=== PATIENT | female | born 1935 | race Caucasian/White ===

== ENCOUNTER → 2016-09-22 | Outpatient (CLI) | payer MEDICARE, MEDICAID ==
[~2016-09-22] MED LIST: ACDPT PO; ACET-461 PO; AMLO5TAB2 PO; ASP81CT PO; ASP81TEC PO; CATHETER FLUSH 10 ML SYR IV PRN; CETI10TA20 PO; CLINDAMYCIN 1% TP; CODE-54 PO; DABI150C2 PO; DCS100C PO; DULO60CA6 PO; FERR-57 PO; FLUT16SP22 NS; FURO20TA PO; MAGN250T7 PO; MECL25TA56 PO; METO25TA2 PO; OMEG1CAP51 PO; OMEP20CA12 PO; POTA10TA36 PO; REGADENOSON 0.4 MG/5 ML SYR (LEXISCAN) IV ONE; RNT150T PO; TRAV5DRO OU
--- OUTSIDE RECORDS SUMMARY | 2016-09-22 10:34 | XMS REPORT | Continuity of Care Document ---
Author Author [facility] Organization [facility] Address Unknown Phone Unavailable Care Team Providers Care [place] [employer] Inspector Name Role Phone VIJAYA GUILLAUME DO PCP Insurance Providers Payer Name Policy Number Subscriber Name Relationship [employer] [id number] Irena Thomson 18 Self / Same As Patient [facility] [id number] Irena Thomson 18 Self / Same As Patient Advance Directives Directive Response Recorded Date/Time Advance Directives Yes 03/27/14 8:52am Health Care Power of [place] Yes 03/27/14 8:52am Organ Donor Yes 03/27/14 8:52am Resuscitation Status Full Code 03/27/14 8:52am Problems No known problems or medical conditions. Medications Medication Dose Route Sig Days/Qty Instructions Order Date Discontinued Date Status Duloxetine HCl 60 Mg PO DAILY 03/27/14 03/27/14 Discontinued Acetaminophen/Codeine 1 Tab PO EVERY 6 HOURS PRN PAIN 03/27/14 Active Travoprost 1 Drop OU BEDTIME 03/27/14 Active Dabigatran Etexilate Mesylate 150 Mg PO 0800, 1730 03/27/14 Active Amlodipine Besylate (Norvasc 5 Mg) 5 Mg PO DAILY 03/27/14 Active Omeprazole 20 Mg PO TWICE A DAY 03/27/14 Active Potassium Chloride 10 Meq PO DAILY 03/27/14 Active Ferrous Sulfate 325 Mg PO THREE TIMES A DAY 03/27/14 Active Furosemide 20 Mg PO DAILY 03/27/14 Active Ranitidine HCl 150 Mg PO 0800, 1730 03/27/14 Active Magnesium Oxide 250 Mg PO 0800, 173 03/27/14 Active [place]-3 Fatty Acids/Fish Oil 1,000 Mg PO DAILY 03/27/14 Active Metoprolol Tartrate (Lopressor) 25 Mg PO 0800, 1730 03/27/14 Active Cetirizine HCl 10 Mg PO DAILY @ 1200 03/27/14 Active Docusate Sodium 100 Mg PO TWICE A DAY 03/27/14 Active Meclizine HCl 25 Mg PO FOUR TIMES DAILY PRN DIZZINESS 03/27/14 Active Fluticasone Propionate 1 [place] NS DAILY 03/27/14 03/27/14 Discontinued Aspirin 81 Mg PO DAILY @ 1730 03/27/14 03/27/14 Discontinued Aspirin 81 Mg PO DAILY 03/27/14 Active [Clindamycin 1% Swabs] TP TWICE A DAY PRN BUTTOX SORE UES FOR 7 DAYS NEEDED FOR BUTTOX SORES 03/27/14 Active Acetaminophen 500 Mg PO TWICE A DAY PRN PAIN 03/27/14 Active Acetaminophen/Diphenhydramine 1 Tab PO BEDTIME 03/27/14 Active Social History Social History Problem Response Recorded Date/Time Smoking Status Never a Smoker 03/27/2014 8:52am Query Response Start Date Stop Date Smoking Status Never a Smoker Hospital Discharge Instructions No hospital discharge instructions. Plan of Care No plan of care. Functional Status Query Response Date Recorded Patient Orientation Person Place Time Situation March 27, 2014 9:19pm Allergies, Adverse Reactions, Alerts Allergen Type Severity Reaction Status Last Updated hydrocodone ([id number]) Allergy Severe ANAPHYLAXIS Active 03/27/14 propoxyphene ([id number]) Allergy Severe ANAPHYLAXIS Active 03/27/14 acetaminophen Allergy Severe ANAPHYLAXIS Active 03/27/14 prednisone ([id number]) Allergy Severe ANAPHYLAXIS Active 03/27/14 naproxen ([id number]) Allergy Severe ANAPHYLAXIS Active 03/27/14 Sulindac Allergy Unknown HIVES Active 03/27/14 cephalexin Allergy Unknown HIVES Active 03/27/14 Paroxetine ([id number]) Allergy Unknown VOMITING Active 03/27/14 tramadol Allergy Mild NAUSEA/VOMITING Active 03/27/14 amitriptyline ([id number]) Allergy Unknown HIVES Active 03/27/14 sertraline ([id number]) Allergy Mild NAUSEA/VOMITING Active 03/27/14 sulfacetamide ([id number]) Allergy Unknown ITCHING Active 03/27/14 Hydroxychloroquine Allergy Severe ANAPHYLAXIS Active 03/27/14 celecoxib Allergy Unknown ITCHING Active 03/27/14 Duloxetine ([id number]) Adverse Reaction Mild INSOMNIA, HAIR LOSS Active 03/27/14 Immunizations Name Given Type Date of Pneumonia Vaccine 05/28/10 Historical Vital Signs Acute Vital Signs Vital Response Date/Time Temperature (Fahrenheit) 97.1 degrees F (97.6 - 99.5) Temperature (Calculated Celsius) 36.04518 degrees C (36.4 - 37.5) Temperature Source Tympanic Pulse Rate (adult) 81 bpm (60 - 90) Respiratory Rate 18 bpm (12 - 24) O2 Sat by Pulse Oximetry 98 % (88 - 100) Blood Pressure 133/70 mm Hg Pain Pain Intensity 0 Height (Feet) 5 feet Height (Inches) 2.00 inches Height (Calculated Centimeters) 157.200052 cm Weight (Pounds) 166 pounds Weight (Calculated Grams) 83849.334 gm Weight (Calculated Kilograms) 75.601259 kilograms Calculated BMI 30.36 Results No known relevant diagnostic tests, laboratory data and/or discharge summary. Procedures Procedure Status Date Provider(s) Tracing only of electrocardiogram completed 03/27/14 KAMAR SPANGLER MD
[2016-09-22 13:12] VITALS: BP 148/79
[2016-09-22 13:16] VITALS: BP 159/88
[2016-09-22 13:18] VITALS: BP 170/88
--- NOTE | 2016-09-23 09:01 | ECHOCARDIOGRAPHY REPORT ---
PROCEDURE PHYSICIAN: KAMAR SPANGLER DATE OF PROCEDURE: 09/22/2016 TWO DIMENSIONAL ECHOCARDIOGRAM REPORT PRIMARY PHYSICIAN: OTHER PHYSICIAN: REFERRING PHYSICIAN: ORDERING PHYSICIAN: INDICATION FOR THE PROCEDURE: Coronary artery disease, hypertension MEASUREMENTS DERIVED VALUES LV DIAMETER (LAX) NORMALS NORMALS Diastolic 3.7 (3.6-5.2) Eject. Fract. 60% (60%+/-6%) Systolic (2.3-3.9) Diastolic Vol. % Shortening (0.22-0.42) Systolic Vol. Aortic Root IVS THICKNESS Diastolic 0.9 (0.6-1.1) LVPW THICKNESS Diastolic 0.9 (0.6-1.1) LA DIAMETER Systolic 4. (2.1-3.7) FINDINGS: 1. Technical quality is good. 2. The left ventricle is normal in size with normal contractility. Systolic function appeared to be normal. Estimated ejection fraction is 60%. 3. The left atrium is in the upper normal limit in size. No clot or thrombus were seen within the left atrium. 4. The right atrium and right ventricle are normal in size. No clot or thrombus were seen within the right side. 5. Mitral valve is normal in morphology with mild mitral regurgitation noted by color Doppler flow. No mitral valve prolapse. No mitral valve stenosis. 6. Aortic valve is trileaflet with normal opening and closing pattern. No significant aortic stenosis or regurgitation was seen. 7. Tricuspid valve is normal in morphology with mild tricuspid regurgitation noted by color Doppler flow. Doppler across tricuspid valve estimated pulmonary artery pressure of 40+ right atrial pressure. 8. Pulmonic valve is functioning normally. 9. No pericardial effusion. CONCLUSION: 1. Normal left ventricular size and systolic function. Estimated ejection fraction 60%. 2. Left atrium is in the upper normal limit in size. 3. Mild mitral and tricuspid regurgitation. 4. Estimated pulmonary artery pressure of 45 to 50 mmHg. Job ID: [id number] Dictated Date: 09/22/2016 17:18:08 Teletype Technician Date: 09/23/2016 08:57:05 / [place]
--- NOTE | 2016-09-23 10:19 | STRESS TEST ---
PROCEDURE PHYSICIAN: KAMAR SPANGLER LEXISCAN MYOVIEW STRESS REPORT DATE OF PROCEDURE: 09/22/2016 REFERRING PHYSICIAN: Dr. Lemuel Marroquin INDICATION: Coronary artery disease, hypertension. Baseline heart rate is 79, baseline blood pressure: 148/79. Baseline EKG: Sinus rhythm with no ischemic changes. SUMMARY: The patient was injected with 10.78 mCi of technetium 99 Myoview and the resting images were obtained. Then the patient received 0.4 mg of Lexiscan followed by 31.7 mCi of technetium 99 Myoview. Throughout the test, there were no EKG changes. The resting and stress images were reviewed and compared in the short axis, horizontal long axis, and vertical long axis views. Review of the images showed breast attenuation with no significant ischemia or infarction on SPECT images. SSS is 2, SDS 2, TID value 1.14. On the gated images, the left ventricle appeared to be small in size with normal contractility. Calculated ejection fraction 85%. I believe it is an over estimation due to the small left ventricular size. CONCLUSION: 1. The patient tolerated the Lexiscan well. 2. Typical female pattern with no significant ischemia or infarction on SPECT images. 3. Small left ventricular size with normal contractility. Calculated ejection fraction 85%, I believe it is an over estimation due to the small left ventricular size. Job ID: [id number] Dictated Date: 09/22/2016 19:29:07 Education Instructor Date: 09/23/2016 10:07:06 / [place]
== END ==
LOC: CARD 10:31
PROVIDERS: ATTEND Physician Assistant
DX: I25.10 Atherosclerotic heart disease of native coronary artery without angina pectoris (principal); I65.23 Occlusion and stenosis of bilateral carotid arteries; I10 Essential (primary) hypertension; E78.2 Mixed hyperlipidemia
CPT/HCPCS: 78452; 93017; 93306